=== PATIENT | male | born 1950 | race Asian ===

== ENCOUNTER 2017-11-13 08:56 | Outpatient (CLI) | payer MEDICARE, OTHER ==
[2017-11-13] MEDS ORDERED: IOHEXOL-300 100 ML VIAL IV ONE (09:27)
== END 2017-11-13 23:59 | disposition home or self-care (01) ==
LOC: CT 08:56
DX: J90 Pleural effusion, not elsewhere classified (principal); J98.11 Atelectasis; K75.0 Abscess of liver
CPT/HCPCS: 74178; Q9967